=== PATIENT | male | born 1945 | race Caucasian/White ===

== ENCOUNTER → 2017-12-31 09:15 | Outpatient (CLI) | payer MEDICARE, SELFPAY ==
[2017-12-31 10:56] LABS: Add Manual Diff / Slide Review NO; Basophils Percent Auto 0.6 % (0-2); Eosinophils Percent Auto 0.8 % (2-4); Hemoglobin 14.1 g/dL (13.5-17.5); Lymphocytes Percent Auto 26.4 % (25-40); Mean Corpuscular HGB Conc 34.3 % (30-36); Mean Corpuscular Hemoglobin 34.1 PG (26-34); Mean Corpuscular Volume 99.4 fL (80-100); Monocytes Percent Auto 8.7 % (3-14); Neutrophils Absolute Auto 3200 /uL (3000-5900); Neutrophils Percent Auto 63.5 % (50-75); Platelet Count 258 X10^3/uL (150-400); Red Blood Cell Count 4.12 X10^6/uL (4.5-5.9); White Blood Cell Count 5.1 X10^3/uL (4.5-11.0)
== END ==
PROVIDERS: PCP Internal Medicine; Visit Provider Internal Medicine
DX: E29.1 Testicular hypofunction (principal); D64.9 Anemia, unspecified
CPT/HCPCS: 36415; 84153; 84403; 85025

== ENCOUNTER → 2018-08-06 13:49 | Outpatient (CLI) | payer MEDICARE, SELFPAY ==
[2018-08-06 14:25] LABS: Add Manual Diff / Slide Review NO; Basophils Absolute Auto 0 /uL (0-100); Basophils Percent Auto 0.4 % (0-2); Eosinophils Absolute Auto 0 /uL (0-450); Eosinophils Percent Auto 0.3 % (2-4); Hematocrit 41.6 % (41-53); Lymphocytes Absolute Auto 1400 /uL (1100-4500); Lymphocytes Percent Auto 21.6 % (25-40); Mean Corpuscular HGB Conc 33.7 % (30-36); Mean Corpuscular Hemoglobin 33.2 PG (26-34); Mean Corpuscular Volume 98.5 fL (80-100); Monocytes Absolute Auto 500 /uL (0-900); Monocytes Percent Auto 7.9 % (3-14); Neutrophils Absolute Auto 4600 /uL (1500-7000); Neutrophils Percent Auto 69.8 % (50-75); Platelet Count 240 X10^3/uL (150-400); Red Blood Cell Count 4.22 X10^6/uL (4.5-5.9); White Blood Cell Count 6.6 X10^3/uL (4.5-11.0)
== END ==
PROVIDERS: Visit Provider Internal Medicine
DX: D64.9 Anemia, unspecified (principal)
CPT/HCPCS: 36415; 85025

== ENCOUNTER 2018-09-29 15:23 | Emergency (ER) | payer MEDICARE, SELFPAY ==
[2018-09-29 15:31] VITALS: BP 208/94; PULSE 72; RESP 20; O2SAT 100
--- NOTE | 2018-09-29 15:31 | DI.RAD.S_ITS ---
PROCEDURE: XR CHEST 1V INDICATIONS: chest pain TECHNIQUE: One view of the chest was acquired. COMPARISON: None. FINDINGS: Surgical changes and devices: None. Lungs and pleura: Lungs are clear. No pleural effusions or pneumothorax. Mediastinum: Large hiatal hernia. Mediastinal contours otherwise appear normal. Heart size is normal. Bones and chest wall: No suspicious bony lesions. Overlying soft tissues appear unremarkable. IMPRESSION: 1. No acute process. 2. Hiatal hernia. Dictated by: Tyler Aguilar M.D. on 09/29/2018 at 16:04 Approved by: Tyler Aguilar M.D. on 09/29/2018 at 16:05
--- NOTE | 2018-09-29 15:32 | DI.CT.S_ITS ---
PROCEDURE: CT HEAD/BRAIN WO CON INDICATIONS: headache w/ left sided facial droop since 09/28 TECHNIQUE: Noncontrast 4.5 mm thick angled axial sections acquired from the foramen magnum to the vertex, with coronal and sagittal reformats. For radiation dose reduction, the following was used: automated exposure control, adjustment of mA and/or kV according to patient size. COMPARISON: None. FINDINGS: Image quality: Excellent. CSF spaces: Basal cisterns are patent. No extra-axial fluid collections. The ventricles are symmetric in size and shape. Brain: No intracranial bleeds or masses. There is cerebral volume loss for age, with resultant ventricular and sulcal prominence. There are periventricular and deep white matter chronic small vessel ischemic changes. There is intracranial internal carotid artery atherosclerosis. Skull and face: Calvarium and visualized facial bones appear intact, without suspicious lesions. Sinuses: Visualized sinuses and mastoids are clear. IMPRESSION: No acute intracranial abnormality. Dictated by: Tyler Aguilar M.D. on 09/29/2018 at 15:48 Approved by: Tyler Aguilar M.D. on 09/29/2018 at 15:49
[2018-09-29 16:00] VITALS: BP 156/66; PULSE 68; RESP 18; O2SAT 99
[2018-09-29 16:00] LABS: Add Manual Diff / Slide Review NO; Basophils Absolute Auto 100 /uL (0-100); Basophils Percent Auto 0.9 % (0-2); Eosinophils Absolute Auto 0 /uL (0-450); Eosinophils Percent Auto 0.2 % (2-4); Hematocrit 39.5 % (41-53); Hemoglobin 13.7 g/dL (13.5-17.5); Lymphocytes Absolute Auto 1300 /uL (1100-4500); Lymphocytes Percent Auto 16.5 % (25-40); Mean Corpuscular HGB Conc 34.8 % (30-36); Mean Corpuscular Hemoglobin 34.3 PG (26-34); Mean Corpuscular Volume 98.5 fL (80-100); Monocytes Absolute Auto 600 /uL (0-900); Monocytes Percent Auto 8.1 % (3-14); Neutrophils Absolute Auto 5700 /uL (1500-7000); Neutrophils Percent Auto 74.3 % (50-75); Platelet Count 213 X10^3/uL (150-400); Red Blood Cell Count 4.01 X10^6/uL (4.5-5.9); Red Cell Distribution Width 13.9 % (11.6-14.8); White Blood Cell Count 7.6 X10^3/uL (4.5-11.0)
[2018-09-29 16:12] LABS: Alanine Aminotransferase 24 IU/L (21-72); Albumin 4.2 g/dL (3.5-5.0); Albumin Globulin Ratio 1.3 (1.0-2.8); Alkaline Phosphatase 63 U/L (38-126); Aspartate Aminotransferase 28 IU/L (17-59); BUN Creatinine Ratio 22.2 (6-22); Bilirubin Total 0.5 mg/dL (0.2-1.3); Blood Urea Nitrogen 20 mg/dL (9-20); Calcium 8.8 mg/dL (8.4-10.2); Carbon Dioxide 26 mmol/L (22-32); Chloride 105 mmol/L (98-107); Creatine Kinase 72 U/L (55-170); Estimated Glomerular Filt Rate > 60.0 mL/min (>60); Globulin 3.2 g/dL (1.7-4.1); Glucose 87 mg/dL (80-110); HEMOLYSIS < 15 (0-50); Lipase 126 U/L (23-300); Potassium 3.9 mmol/L (3.4-5.1); Sodium 140 mmol/L (137-145); Total Protein 7.4 g/dL (6.3-8.2)
[2018-09-29 16:13] LABS: Prothrombin Time 11.5 SECONDS (10.1-12.7)
[2018-09-29 16:15] LABS: PTT Partial Thromboplastin Tim 29 SECONDS (26.4-36.2)
[2018-09-29 16:24] LABS: Troponin I < 0.012 ng/mL (0.01-0.034)
--- NOTE | 2018-09-29 17:01 | ED_ITS ---
HPI - Neuro Symptoms/Deficit General Chief Complaint: Neuro Symptoms/Deficit Stated Complaint: EAR ACHE LEFT SIDE HEADACHE LT EYE IS DRAINING Time Seen by Provider: 09/29/18 15:30 Source: patient Mode of arrival: ambulatory Limitations: no limitations History of Present Illness HPI Narrative: Patient complains of left ear pain for the last 4 days, with development of left facial droop yesterday. Patient denies any other complaints. No fatigue. No nausea or vomiting. No fevers. No focal deficits anywhere else. Patient states that his left eye has been tearing. No history of CVA. On Anticoagulants: No Related Data Home Medications Medication Instructions Recorded Confirmed amlodipine 5 mg PO DAILY 09/29/18 09/29/18 esomeprazole magnesium [Nexium] 20 mg PO DAILY 09/29/18 09/29/18 losartan 50 mg PO DAILY 09/29/18 09/29/18 testosterone 1 pump TOPICAL DIRECTED 09/29/18 09/29/18 Previous Rx's Medication Instructions Recorded acyclovir 800 mg PO TID #21 tab 09/29/18 prednisone 60 mg PO DAILY 5 Days #15 tab 09/29/18 Allergies Allergy/AdvReac Type Severity Reaction Status Date / Time No Known Drug Allergies Allergy Verified 09/29/18 15:12 Review of Systems Constitutional Denies chills, Denies fever(s), Denies lethargy and Reports weakness (See below) Eyes Denies change in vision, Denies eye discharge, Denies irritation and Denies loss of vision Comments: Tearing ENT Ears, Nose, Mouth, and Throat: Denies change in voice, Denies neck pain and Denies sore throat Cardiovascular Denies chest pain, Denies irregular heart rhythm, Denies lightheadedness, Denies palpitations, Denies dyspnea, Denies dyspnea on exertion and Denies orthopnea Respiratory Denies cough, Denies dyspnea, Denies dyspnea on exertion and Denies wheezing Gastrointestinal Gastrointestinal: Denies abdominal pain, Denies change in bowel habits, Denies diarrhea, Denies nausea and Denies vomiting Genitourinary Denies hematuria, Denies flank pain, Denies urinary incontinence and Denies urinary urgency Musculoskeletal Denies neck pain Integumentary/Breasts Denies pruritus, Denies erythema, Denies rash and Denies wounds Neurologic Denies confusion, Denies loss of vision and Reports weakness (See below) Comments: Facial droop Psychiatric Denies anxiety, Denies confusion, Denies depression, Denies homicidal ideation and Denies suicidal ideation Endocrine Denies palpitations Hematologic/Lymphatic Denies easy bruising Allergic/Immunologic Denies wheezing [facility] Medical History HTN (hypertension) (Acute) Surgical History No pertinent past surgical history (Acute) Social History Smoking Status: Never smoker Social History Smoking Status: Never smoker Exam Initial Vital Signs Initial Vital Signs: Vital Signs Pulse Rate 72 09/29/18 15:31 Respiratory Rate 20 09/29/18 15:31 Blood Pressure 208/94 H 09/29/18 15:31 Pulse Oximetry 100 09/29/18 15:31 Const General: cooperative and well developed Nutritional Appearance: well nourished Orientation: alert, awake, oriented x3 and not confused HENMT Head: normocephalic and atraumatic Ears: external ears normal and TM's normal bilaterally Nose: external nose normal and No nasal discharge Face and sinus: sinuses nontender, face symmetric, no sinus tenderness and No dry mucous membranes Mouth: oral mucosae normal and moist mucous membranes Teeth and gingiva: dentition normal Throat: tonsils normal and uvula midline Eyes General: appearance normal, both eyes and all related structures Eyelids: eyelids normal Conjunctivae: conjunctival abnormality left conjunctival injection (Mild tea ring) Sclera: sclerae normal Pupils: PERRL EOM: EOM intact bilaterally Neck Neck: normal visual inspection, trachea midline, No lymphadenopathy, No midline deformity and No JVD Lymphatic: No lymphedema Chest Chest: normal inspection of the chest Resp Effort & Inspection: normal respiratory effort, able to speak in complete sentences, no respiratory distress and no use of accessory muscles Auscultation: clear to auscultation bilaterally, no rales, no rhonchi and no wheezes Cardio Rate: regular rate Rhythm: regular rhythm Heart Sounds: no click, no gallops, no murmurs and no rubs Pulses: normal peripheral pulses GI Inspection: non-distended Palpation: soft, no hepatosplenomegaly, No guarding, No pulsatile mass and No tender Auscultation: normal bowel sounds Back/Spine/Pelvis Back: No CVA tenderness Cervical Spine: cervical ROM normal and No pain with cervical ROM Thoracic/Lumbar Spine: thoracic and lumbar spine normal to inspection Skin General: no rashes or lesions noted, No jaundice and No petechiae Neuro General: alert, awake, oriented x3 and gait normal Cranial Nerves: other (Global left facial droop, including forehead) Cognition: normal cognition Speech: speech normal Gait: normal gait Motor: muscle tone normal throughout and strength 5/5 throughout Sensory Exam: no sensory deficits noted Extrem General: full ROM, no clubbing, cyanosis or edema, no pedal edema and no calf tenderness Psych Appearance: well kempt Mental Status: mental status grossly normal Attitude: cooperative Thought Content: normal and suicidality Judgment: judgment good Course Course Narrative: Workup was initiated on the patient's arrival, including labs and head CT, and found to be negative. 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 I started the patient on acyclovir and prednisone. I have discussed with the patient that the symptoms do not represent a stroke, and will be self-limited and a matter of weeks. We have discussed home management of symptoms, as well as the indications for follow-up and the usual indications for return. Orders Ordered: Discontinued Medications Acyclovir (Zovirax) 800 mg PO NOW ONE Stop: 09/29/18 16:59 Last Admin: 09/29/18 17:26 Dose: 800 mg Labetalol HCl (Normodyne) 20 mg IV NOW ONE Stop: 09/29/18 15:56 Last Admin: 09/29/18 16:00 Dose: Not Given Prednisone (Deltasone) 60 mg PO NOW ONE Stop: 09/29/18 16:59 Last Admin: 09/29/18 17:26 Dose: 60 mg Vital Signs - 8 hr 09/29/18 15:31 09/29/18 16:00 Pulse Rate 72 68 Respiratory Rate 20 18 Blood Pressure 208/94 H Blood Pressure [Right Arm] 156/66 H Pulse Oximetry 100 99 MDM - Neuro Symptoms/Deficit Medical Records Attestation: I reviewed the patient's medical records. Lab Data Attestation: I reviewed the patient's lab results. Result diagrams: 09/29/18 15:51 09/29/18 15:51 Lab Results 09/29/18 09/29/1809/29/19 Range/Units 15:51 15:51 15:51 WBC 7.6 (4.5-11.0) X10^3/uL RBC 4.01 L (4.5-5.9) X10^6/uL Hgb 13.7 (13.5-17.5) g/dL Hct 39.5 L (41-53) % MCV 98.5 (80-100) fL MCH 34.3 H (26-34) PG MCHC 34.8 (30-36) % RDW 13.9 (11.6-14.8) % Plt Count 213 (150-400) X10^3/uL Neut % (Auto) 74.3 (50-75) % Lymph % (Auto) 16.5 L (25-40) % [place] % (Auto) 8.1 (3-14) % Eos % (Auto) 0.2 L (2-4) % Baso % (Auto) 0.9 (0-2) % Neut # (Auto) 5700 (1778-6063) /uL Lymph # (Auto) 1300 (3967-1154) /uL [place] # (Auto) 600 (0-900) /uL Eos # (Auto) 0 (0-450) /uL Baso # (Auto) 100 (0-100) /uL PT 11.5 (10.1-12.7) SECONDS INR 1.0 (0.9-1.3) APTT 29 (26.4-36.2) SECONDS Sodium 140 (137-145) mmol/L Potassium 3.9 (3.4-5.1) mmol/L Chloride 105 (98-107) mmol/L Carbon Dioxide 26 (22-32) mmol/L BUN 20 (9-20) mg/dL Creatinine 0.90 (0.66-1.25) mg/dL Estimated GFR > 60.0 (>60) mL/min BUN/Creatinine Ratio 22.2 H (6-22) Glucose 87 (80-110) mg/dL Calcium 8.8 (8.4-10.2) mg/dL Total Bilirubin 0.5 (0.2-1.3) mg/dL AST 28 (17-59) IU/L ALT 24 (21-72) IU/L Alkaline Phosphatase 63 (38-126) U/L Total Creatine Kinase 72 (55-170) U/L CK-MB (CK-2) TNP CK-MB (CK-2) Rel Index TNP Troponin I < 0.012 (0.01-0.034) ng/mL Total Protein 7.4 (6.3-8.2) g/dL Albumin 4.2 (3.5-5.0) g/dL Globulin 3.2 (1.7-4.1) g/dL Albumin/Globulin Ratio 1.3 (1.0-2.8) Lipase 126 (23-300) U/L Imaging Data CT scan - head: Radiologist's impression: PROCEDURE: CT HEAD/BRAIN WO CON INDICATIONS: headache w/ left sided facial droop since 09/28 TECHNIQUE: Noncontrast 4.5 mm thick angled axial sections acquired from the foramen magnum to the vertex, with coronal and sagittal reformats. For radiation dose reduction, the following was used: automated exposure control, adjustment of mA and/or kV according to patient size. COMPARISON: None. FINDINGS: Image quality: Excellent. CSF spaces: Basal cisterns are patent. No extra-axial fluid collections. The ventricles are symmetric in size and shape. Brain: No intracranial bleeds or masses. There is cerebral volume loss for age, with resultant ventricular and sulcal prominence. There are periventricular and deep white matter chronic small vessel ischemic changes. There is intracranial internal carotid artery atherosclerosis. Skull and face: Calvarium and visualized facial bones appear intact, without suspicious lesions. Sinuses: Visualized sinuses and mastoids are clear. IMPRESSION: No acute intracranial abnormality. Dictated by: Tyler Aguilar M.D. on 09/29/2018 at 15:48 Approved by: Tyler Aguilar M.D. on 09/29/2018 at 15:49 Chest x-ray: Radiologist's impression: [address] [address] XRay Report Signed Patient: Sundeep Rashid [facility]#: [id number] : 5Acct:[id number] Age/Sex: 73 / MDate of Service: 09/29/18 Loc: ED Accession Number: [id number] Procedure: XR chest 1V Ordering Provider: Lexi Evans MD PROCEDURE: XR CHEST 1V INDICATIONS: chest pain TECHNIQUE: One view of the chest was acquired. COMPARISON: None. FINDINGS: Surgical changes and devices: None. Lungs and pleura: Lungs are clear. No pleural effusions or pneumothorax. Mediastinum: Large hiatal hernia. Mediastinal contours otherwise appear normal. Heart size is normal. Bones and chest wall: No suspicious bony lesions. Overlying soft tissues appear unremarkable. IMPRESSION: 1. No acute process. 2. Hiatal hernia. Dictated by: Tyler Aguilar M.D. on 09/29/2018 at 16:04 Approved by: Tyler Aguilar M.D. on 09/29/2018 at 16:05 Discharge Plan Departure Patient Disposition: Home Clinical Impression: Facial paralysis/Spencer palsy Discharge Date/Time: 09/29/18 17:36 Interventions: ED Discharge Assessment Last Done: 09/29/18 17:35 Instructions: DI for Murry's Palsy Activity Restrictions/Additional Instructions: Your labs look good. Your CT scan of the head is also unremarkable. Her symptoms are most consistent with a facial nerve palsy, which is usually caused by a viral infection in the facial nerve. This is most likely related also to the ear pain that you are having. All of the symptoms will resolve on their o wn, but steroids and antiviral medication have been shown to be helpful for this condition, and as such, you have been started on these today. The facial weakness can last for weeks to a couple of months, but will ultimately resolve on its own. To protect your eye at night while your lids are not completely closing, you should use the Lacri-Lube, as prescribed. Prescriptions: New prednisone 20 mg tablet 60 mg PO DAILY 5 Days Qty: 15 RF: 0 acyclovir 800 mg tablet 800 mg PO TID Qty: 21 RF: 0 No Action losartan 50 mg tablet 50 mg PO DAILY RF: 0 amlodipine 5 mg tablet 5 mg PO DAILY RF: 0 testosterone 20.25 mg/1.25 gram (1.62 %) gel in metered-dose pump 1 pump topical DIRECTED RF: 0 esomeprazole magnesium [Nexium] 20 mg Capsule,Delayed Release(Dr/Ec) 20 mg PO DAILY RF: 0 Referrals: [facility] Neurology [Provider Group] (You may follow up as needed.)
[2018-09-29 17:15] VITALS: BP 154/81; PULSE 67; RESP 12; O2SAT 99
[2018-09-29] MEDS: ACYCLOVIR 200 MG CAPSULE 800 MG PO (17:26)
[2018-09-29] MEDS: predniSONE 20 MG TABLET 60 MG PO (17:26)
--- NOTE | 2018-09-30 14:56 | PC.NURSE ---
Received phone call from pt who [facility]. I called neurology and they confirmed that also stating that it would be March or April before he would be seen. Called PCP office (Dr. Cruz). Spoke w/ dental office receptionist who made appointment for patient tomorrow @ 2:15. Spoke w/ patient who verbalized understanding and agreement w/ plan. Encouraged pt to return if any worsening or concerns.
== END 2018-09-29 17:36 | disposition home or self-care (01) ==
PROVIDERS: Emergency Provider Emergency Medicine
DX: G51.0 Bell's palsy (principal); R07.9 Chest pain, unspecified
CPT/HCPCS: 36591; 70450; 71045; 80053; 82550; 83690; 84484; 85025; 85610; 85730; 93005; 99283; 99285

== ENCOUNTER → 2020-10-04 12:38 | Outpatient (CLI) | payer MEDICARE, SELFPAY ==
--- NOTE | 2020-10-04 | PATH_ITS ---
Note [facility] Accession Number: [id number] TESTS RESULT FLAG UNITS REF RANGE LAB Clinician Provided Cytology Information No. of containers..01 Other (Miscellaneous) No. of containers..00 Previously Prepared Cytology Slide 01 L INFERIOR THYROID DIAGNOSIS: 01 L INFERIOR THYROID NEGATIVE FOR MALIGNANT CELLS. BETHESDA CATEGORY II. SPECIMEN CONSISTS OF BENIGN FOLLICULAR CELLS AND HEMOSIDERIN-LADEN MACROPHAGES, CONSISTENT WITH A BENIGN FOLLICULAR NODULE. Pathologist ICD10: 01 E04.1 Lo Parada MD, Pathologist NPI- [id number] Jayden Clifton, Music Industry Internship ([facility]) 01 30 CC, PINK, CLEAR Also received 5 quick-stained, 5 alcohol fixed slides, and 1 RNA vial. /[facility] 10/05/[address] [place] [address] FLAG LEGEND: L-Low Normal,H-High Normal,LL-Alert Low,HH-Alert High <-Panic Low,>-Panic High,A-Abnormal,AA-Critical Abnormal Performed at: 01 =Z [facility] [address], [place] [address] Omid Casillas MD, Performed at: 01 [facility] [address], [place], [place] [id number] MD Omid Casillas MD Phone: [phone]
--- NOTE | 2020-10-04 | PATH_ITS ---
Note [facility] Accession Number: [id number] TESTS RESULT FLAG UNITS REF RANGE LAB Clinician Provided Cytology Information No. of containers..01 Other (Miscellaneous) No. of containers..00 Previously Prepared Cytology Slide R THYROID MEDIAL DIAGNOSIS: 01 R THYROID MEDIAL NEGATIVE FOR MALIGNANT CELLS. BETHESDA CATEGORY II. SPECIMEN CONSISTS OF BENIGN FOLLICULAR CELLS AND HEMOSIDERIN-LADEN MACROPHAGES, CONSISTENT WITH A BENIGN FOLLICULAR NODULE. Pathologist ICD10: E04.1 Lo Parada MD, Pathologist NPI- [id number] Jayden Clifton, Human Resource Analyst ([facility]) 01 30 CC, PINK, CLEAR Also received 5 quick-stained, 5 alcohol fixed slides, and 1 RNA vial. /[facility] 10/05/2020 [address] [address] FLAG LEGEND: L-Low Normal,H-High Normal,LL-Alert Low,HH-Alert High <-Panic Low,>-Panic High,A-Abnormal,AA-Critical Abnormal Performed at: 01 =Z [facility] [address], [place] [address] Omid Casillas MD, Performed at: 01 [facility] [address], [place], [place] [id number] MD Omid Casillas MD Phone: [phone]
--- NOTE | 2020-10-04 | PATH_ITS ---
Note [facility] Accession Number: [id number] TESTS RESULT FLAG UNITS REF RANGE LAB Clinician Provided Cytology Information No. of containers..01 Other (Miscellaneous) No. of containers..00 Previously Prepared Cytology Slide 01 R THYROID LATERAL NODULE DIAGNOSIS: 01 R THYROID LATERAL NODULE NEGATIVE FOR MALIGNANT CELLS. BETHESDA CATEGORY II. SPECIMEN CONSISTS OF BENIGN FOLLICULAR CELLS, HEMOSIDERIN-LADEN MACROPHAGES, AND COLLOID, CONSISTENT WITH A BENIGN FOLLICULAR NODULE. Pathologist ICD10: 01 E04.1 Lo Parada MD, Pathologist NPI- [id number] Carlos Mcbride, Stamp Press Operator ([facility]) 01 30 CC, PINK, CLEAR Also received 1 RNA vial, 5 quick-stained, and 5 alcohol fixed slides. /[facility] 10/05/[address] [place] [address] FLAG LEGEND: L-Low Normal,H-High Normal,LL-Alert Low,HH-Alert High <-Panic Low,>-Panic High,A-Abnormal,AA-Critical Abnormal Performed at: 01 =Z [facility] [address], [place] [address] Omid Casillas MD, Performed at: 01 [facility] [address], [place], [place] [id number] MD Omid Casillas MD Phone: [phone]
--- NOTE | 2020-10-04 | DI.US.S_ITS ---
PROCEDURE: US FINE NEEDLE ASPIRATION INDICATIONS: BILATERAL NODULES X 3 TECHNIQUE: The indications, alternatives, benefits, risks, and complications of the procedure were explained to the patient. Written informed consent was obtained and placed in the chart. The thyroid region was examined sonographically and a site was chosen for ultrasound guided percutaneous sampling. The skin was prepared and draped in the usual fashion, and anesthetized with 1% lidocaine infiltrated from the skin down to the thyroid gland. Multiple passes were then performed, with contents emptied into an appropriate pathology specimen container. A bandage was applied to the area of access at completion of the study. COMPARISON: No images available for review FINDINGS: Location(s) of lesion(s) sampled: 1. Inferior left thyroid lobe nodule. 2. Right lateral thyroid lobe nodule. 3. Right medial thyroid lobe nodule. Please see FNA worksheet for location. Sanders: 25 gauge hypodermic needles. Number of passes: 6 passes were made for each nodule sampled. Medications: 1% lidocaine for local anaesthesia. Complications: None. IMPRESSION: Successful ultrasound-guided thyroid nodule fine needle aspiration, with cytology results pending. Please see chart below for management recommendations based on cytology results. Bowdle System ReportingRecommendationsNon-diagnostic* Repeat US-guided FNA, with on-site cytology evaluation if possible. * Repeated non-diagnostic nodules without high suspicion US features: close observation vs surgical consult. * Consider surgery if nodule has high suspicion US features, grows >20% in 2 dimensions on followup, or patient has clinical risk factors for malignancy. Benign* If nodule has high suspicion US features: repeat US and FNA within 12 months. * If nodule has low to intermediate suspicion US features: repeat US at 12-24 months. If nodule grows (20% increase in at least 2 dimensions, with minimal increase of 2 mm or >50% change in volume), or development of new suspicious US features, then repeat FNA or continue followup. * If nodule has very low suspicion US features: followup US at >24 months. Atypia of undetermined significance, follicular lesion of undetermined significanceRepeat FNA, molecular testing, followup US, or surgical consult.Follicular neoplasm, suspicious for follicular neoplasmSurgical consult; also consider molecular testing. Suspicious for malignancySurgical consult.MalignantSurgical consult. Dictated by: Ridge Lenz M.D. on 10/04/2020 at 17:37 Approved by: Ridge Lenz M.D. on 10/04/2020 at 17:40
== END ==
PROVIDERS: PCP Student in an Organized Health Care Education/Training Program; Referring Provider Student in an Organized Health Care Education/Training Program; Visit Provider Student in an Organized Health Care Education/Training Program
DX: E04.2 Nontoxic multinodular goiter (principal)
CPT/HCPCS: 10005; 10006

== ENCOUNTER → 2022-11-06 11:21 | Outpatient (CLI) | payer MEDICARE, SELFPAY ==
[2022-11-06 14:45] LABS: Add Manual Diff / Slide Review NO; Basophils Absolute Auto 0 /uL (0-100); Basophils Percent Auto 0.5 % (0-2); Eosinophils Absolute Auto 100 /uL (0-450); Eosinophils Percent Auto 0.8 % (2-4); Hematocrit 41.5 % (41-53); Hemoglobin 14.5 g/dL (13.5-17.5); Lymphocytes Absolute Auto 1300 /uL (1100-4500); Lymphocytes Percent Auto 20.3 % (25-40); Mean Corpuscular HGB Conc 34.9 % (30-36); Mean Corpuscular Hemoglobin 36.1 PG (26-34); Mean Corpuscular Volume 103.4 fL (80-100); Monocytes Absolute Auto 600 /uL (0-900); Monocytes Percent Auto 9.1 % (3-14); Neutrophils Absolute Auto 4500 /uL (1500-7000); Neutrophils Percent Auto 69.3 % (50-75); Platelet Count 219 X10^3/uL (150-400); Red Blood Cell Count 4.01 X10^6/uL (4.5-5.9); White Blood Cell Count 6.5 X10^3/uL (4.5-11.0)
[2022-11-06 15:03] LABS: Erythrocyte Sedimentation Rate 7 MM/HR (0-15)
== END ==
PROVIDERS: PCP Student in an Organized Health Care Education/Training Program; Referring Provider Ophthalmology; Visit Provider Ophthalmology
DX: R51.9 Headache, unspecified (principal)
CPT/HCPCS: 36415; 85025; 85651; 86140

== ENCOUNTER → 2022-11-20 08:53 | Outpatient (CLI) | payer MEDICARE, SELFPAY ==
[2022-11-20 10:29] LABS: Prostate Specific Antigen 1.49 ng/mL (0.10-4.00)
== END ==
PROVIDERS: PCP Student in an Organized Health Care Education/Training Program; Visit Provider Specialist
DX: Z12.5 Encounter for screening for malignant neoplasm of prostate (principal); R33.9 Retention of urine, unspecified; N40.1 Benign prostatic hyperplasia with lower urinary tract symptoms; N13.8 Other obstructive and reflux uropathy; Z87.438 Personal history of other diseases of male genital organs
CPT/HCPCS: 51798; 81002; 84153; 87086; 99215; G0103

== ENCOUNTER → 2022-12-09 10:48 | Outpatient (CLI) | payer MEDICARE, SELFPAY ==
--- NOTE | 2022-12-09 | DI.CT.S_ITS ---
PROCEDURE: CT SINUS SCREEN WO CON INDICATIONS: HEADACHE TECHNIQUE: Noncontrast 3.0 mm axial images acquired from the frontal sinuses to the mid-sella, with coronal and sagittal reformats. For radiation dose reduction, the following was used: automated exposure control, adjustment of mA and/or kV according to patient size. COMPARISON: None. FINDINGS: Image quality: Excellent. Maxillary Sinuses: No bony remodeling or destruction. Mild mucosal thickening. Moderate size mucous retention cysts inferiorly.. Ethmoid Air Cells: No bony remodeling or destruction. Mild diffuse mucosal thickening. Sphenoid Sinuses: No bony remodeling or destruction. Mild mucosal thickening with small fluid in the pneumatized left lateral aspect of the sphenoid sinus.. Frontal Sinuses: No bony remodeling or destruction. Mild mucosal thickening inferiorly. Ostiomeatal Complexes: Left ostiomeatal complex is opacified. Right ostiomeatal complex is clear.. Left-sided and partial right-sided Noemy cells. Miscellaneous: Visualized intra-orbital contents are normal. Right-sided nova bullosa . No paradoxical turbinate curvature. Minimal leftward nasal septal deviation. Periapical lucency surrounding the right maxillary molars. Bilateral lens replacements. IMPRESSION: 1. Mild diffuse paranasal sinus mucosal disease. Mucous retention cysts within the bilateral maxillary sinuses. 2. Periapical lucency surrounding the right maxillary molars, recommend correlation with dental exam. Dictated by: Norbert Stevenson M.D. on 12/09/2022 at 12:14 Approved by: Norbert Stevenson M.D. on 12/09/2022 at 12:20
== END ==
PROVIDERS: PCP Family Medicine; Referring Provider Family Medicine; Visit Provider Family Medicine
DX: J32.8 Other chronic sinusitis (principal); J34.1 Cyst and mucocele of nose and nasal sinus; R51.9 Headache, unspecified
CPT/HCPCS: 70486

== ENCOUNTER 2024-08-14 08:47 | Emergency (ER) | payer MEDICARE, SELFPAY ==
[2024-08-14] VITALS (14 sets, daily range): BP systolic 108–127; BP diastolic 55–73; PULSE 62–83; RESP 18; TEMP 36.8; O2SAT 95–99; BMI 27.3
--- NOTE | 2024-08-14 09:16 | ED_ITS ---
HPI - General Adult General Chief complaint: Nausea/Vomiting/Diarrhea Stated complaint: diarrhea, head/ear congestion t-3 Time Seen by Provider: 08/14/24 08:52 Source: patient Mode of arrival: Ambulatory History of Present Illness HPI narrative: 78-year-old male had recent travel to [place], returning with occasional cough, predominance of frequent episodes watery stool for the last few days. No black or red stools. No mucoid stools. No nausea or vomiting. traveled with him, is asymptomatic with regard to respiratory and gastrointestinal symptoms. Patient not taking any oral antibiotics now or recent. No history of known inflammatory bowel disease. Denies abdominal discomfort. Denies chest pain and shortness of breath. No fevers or chills. Related Data Home Medications Medication Instructions Recorded Confirmed amlodipine 5 mg tablet 5 mg PO DAILY 09/29/18 08/11/24 losartan 50 mg tablet 50 mg PO DAILY 09/29/18 08/11/24 testosterone 1 pump topical DIRECTED 09/29/18 08/11/24 Previous Rx's Medication Instructions Recorded alfuzosin 10 mg tablet,extended 10 mg PO DAILY #90 tabs 07/21/24 release 24 hr Allergies Allergy/AdvReac Type Severity Reaction Status Date / Time No Known Drug Allergies Allergy Verified 08/11/24 09:42 Patient History Medical History History of prostatitis BPH w urinary obs/LUTS HTN (hypertension) Surgical History No pertinent past surgical history Social History Smoking Status: Former smoker Smoking Status: Former smoker Exam Narrative Exam Narrative: GENERAL: Well-developed patient, in mild distress. HEAD: Atraumatic. Normocephalic. EYES: Pupils equal round and reactive. Extraocular motions intact. No scleral icterus. No injection or drainage. ENT: Nose without bleeding, purulent drainage. Throat without erythema, tonsillar hypertrophy or exudate. Airway patent. NECK: Trachea midline. Non tender CARDIOVASCULAR: Regular rate and rhythm without murmurs, gallops, or rubs. RESPIRATORY: Clear to auscultation. Breath sounds equal bilaterally. No wheezes, rales, or rhonchi. GASTROINTESTINAL: Abdomen soft, non-tender, nondistended. EXTREMITIES: No edema or joint tenderness. BACK: Nontender without deformity or crepitance. No flank tenderness. NEURO: AOx3. Motor functions grossly nonfocal SKIN: No rash or erythema of visible areas Initial Vital Signs Initial Vital Signs: Vital Signs Blood Pressure 125/58 L 08/14/24 08:52 Course Orders Ordered: ED Orders 08/14/24 11:30 GI Panel (Film Array) Stat 08/14/24 12:30 Ictotest Urine Stat Urine Microscopic Stat Discontinued Medications Azithromycin (Azithromycin 250 Mg Tablet) 500 mg PO NOW ONE Stop: 08/14/24 13:22 Last Admin: 08/14/24 13:33 Dose: Not Given Documented By: Azithromycin (Azithromycin 250 Mg Tablet) 1,000 mg PO NOW ONE Stop: 08/14/24 13:31 Last Admin: 08/14/24 13:42 Dose: 1,000 mg Documented By: RB Sodium Chloride (Normal Saline 0.9%) 1,000 mls @ 1,000 mls/hr IV BOLUS ONE Stop: 08/14/24 09:52 Last Infusion: 08/14/24 10:47 Dose: Infused Documented By: Admin: 08/14/24 09:26 Dose: 1,000 mls/hr Documented By: RB Loperamide HCl (Loperamide 2 Mg Capsule) 4 mg PO NOW ONE Stop: 08/14/24 10:42 Last Admin: 08/14/24 10:46 Dose: 4 mg Documented By: RB Potassium Chloride (Potassium Chloride 20 Meq/15 Ml Udc) 20 meq PO NOW ONE Stop: 08/14/24 10:37 Last Admin: 08/14/24 10:46 Dose: 20 meq Documented By: RB Vital Signs Vital signs: Vital Signs - 8 hr 08/14/24 13:39 08/14/24 13:40 08/14/24 13:40 Pulse Rate 69 68 Blood Pressure 121/62 Pulse Oximetry 97 97 Medical Decision Making Lab Data Lab results reviewed: Yes I reviewed the patient's lab results. Lab results narrative: White blood cell count 7800, hemoglobin 14.3, platelets 220,000. Glucose 119. BUN 20 with creatinine 1.38 normal renal function. Serum CO2 21 slight decreased. Sodium 130 low noted, potassium 3.4 low in normal before IV fluids given. Liver functions and lipase normal. COVID flu RSV swab negative. 08/14/24 09:20 08/14/24 09:20 Labs: Lab Results 08/14/24 08/14/24 08/14/24 Range/Units 09:00 09:20 11:30 WBC 7.8 (4.5-11.0) X10^3/uL RBC 3.81 L (4.5-5.9) X10^6/uL Hgb 14.3 (13.5-17.5) g/dL Hct 40.4 L (41-53) % MCV 106.1 H (80-100) fL MCH 37.5 H (26-34) PG MCHC 35.4 (30-36) % RDW 12.5 (11.6-14.8) % Plt Count 227 (150-400) X10^3/uL Neut % (Auto) 76.1 H (50-75) % Lymph % (Auto) 6.3 L (25-40) % [place] % (Auto) 17.1 H (3-14) % Eos % (Auto) 0.1 L (2-4) % Baso % (Auto) 0.4 (0-2) % Neut # (Auto) 6000 (8692-3295) /uL Lymph # (Auto) 500 L (5696-3457) /uL [place] # (Auto) 1300 H (0-900) /uL Eos # (Auto) 0 (0-450) /uL Baso # (Auto) 0 (0-100) /uL Sodium 130 L (137-145) mmol/L Potassium 3.4 (3.4-5.1) mmol/L Chloride 99 (98-107) mmol/L Carbon Dioxide 21 L (22-32) mmol/L BUN 20 (9-20) mg/dL Creatinine 1.38 H (0.66-1.25) mg/dL Estimated GFR 52 L (>60) mL/min BUN/Creatinine Ratio 14.5 (6-22) Glucose 119 H (70-99) mg/dL Calcium 8.3 L (8.4-10.2) mg/dL Total Bilirubin 0.6 (0.2-1.3) mg/dL AST 48 (17-59) IU/L ALT 45 (<50) IU/L Alkaline Phosphatase 63 (38-126) U/L Total Protein 6.7 (6.3-8.2) g/dL Albumin 3.5 (3.5-5.0) g/dL Globulin 3.2 (1.7-4.1) g/dL Albumin/Globulin Ratio 1.1 (1.0-2.8) Lipase 72 (23-300) U/L Ur Bilirubin Confirm (Negative) Urine RBC (0-5/HPF) Urine WBC (0-5/HPF) Ur Squamous Epith Cells (0-5/HPF) Urine Bacteria (None) Hyaline Casts (None) Urine Mucus (Negative) Ur Culture Indicated? Vol Urine Centrifuged Stl C. cayetanensis PCR Not detected (Not Detect) Stool Rotavirus (PCR) Not detected (Not Detect) Stool Adenovirus (PCR) Not detected (Not Detect) Stool Astrovirus (PCR) Not detected (Not Detect) Stool Cryptosporidium PCR Not detected (Not Detect) Stl E.coli Shiga Tox PCR Not detected (Not Detect) St Sh/Enteroin Ecoli PCR Not detected (Not Detect) Stl Enterotoxigenic E PCR Not detected (Not Detect) Stool EPEC (PCR) Not detected (Not Detect) Stl E. histolytica PCR Not detected (Not Detect) Stool Giardia Lamblia PCR Not detected (Not Detect) Stool Sapovirus (PCR) Not detected (Not Detect) Stl P. shigelloides PCR Not detected (Not Detect) St Y.enterocolitica PCR Not detected (Not Detect) Stool Vibrio (PCR) Not detected (Not Detect) Stl Vibrio cholerae PCR Not detected (Not Detect) Stl Enteroaggr Ecoli PCR Not detected (Not Detect) Stl Norovirus GI/GII PCR Not detected (Not Detect) Campylobacter (PCR) Detected (Not Detect) C. difficile Tox (PCR) Not detected (Not Detect) SARS-CoV-2 (PCR) Negative (Negative) Influenza A (RT-PCR) Flu a negative (NEGATIVE) Influenza B (RT-PCR) Flu b negative (NEGATIVE) RSV (PCR) Negative (Negative) Salmonella (PCR) Not detected (Not Detect) 08/14/24 Range/Units 12:30 WBC (4.5-11.0) X10^3/uL RBC (4.5-5.9) X10^6/uL Hgb (13.5-17.5) g/dL Hct (41-53) % MCV (80-100) fL MCH (26-34) PG MCHC (30-36) % RDW (11.6-14.8) % Plt Count (150-400) X10^3/uL Neut % (Auto) (50-75) % Lymph % (Auto) (25-40) % [place] % (Auto) (3-14) % Eos % (Auto) (2-4) % Baso % (Auto) (0-2) % Neut # (Auto) (7682-4870) /uL Lymph # (Auto) (3960-5366) /uL [place] # (Auto) (0-900) /uL Eos # (Auto) (0-450) /uL Baso # (Auto) (0-100) /uL Sodium (137-145) mmol/L Potassium (3.4-5.1) mmol/L Chloride (98-107) mmol/L Carbon Dioxide (22-32) mmol/L BUN (9-20) mg/dL Creatinine (0.66-1.25) mg/dL Estimated GFR (>60) mL/min BUN/Creatinine Ratio (6-22) Glucose (70-99) mg/dL Calcium (8.4-10.2) mg/dL Total Bilirubin (0.2-1.3) mg/dL AST (17-59) IU/L ALT (<50) IU/L Alkaline Phosphatase (38-126) U/L Total Protein (6.3-8.2) g/dL Albumin (3.5-5.0) g/dL Globulin (1.7-4.1) g/dL Albumin/Globulin Ratio (1.0-2.8) Lipase (23-300) U/L Ur Bilirubin Confirm Positive H (Negative) Urine RBC None seen (0-5/HPF) Urine WBC 0-1/hpf (0-5/HPF) Ur Squamous Epith Cells 0-1 /hpf (0-5/HPF) Urine Bacteria None seen (None) Hyaline Casts 1-5/lpf (None) Urine Mucus 2+ H (Negative) Ur Culture Indicated? Cult not indicated Vol Urine Centrifuged 10ml (spun) Stl C. cayetanensis PCR (Not Detect) Stool Rotavirus (PCR) (Not Detect) Stool Adenovirus (PCR) (Not Detect) Stool Astrovirus (PCR) (Not Detect) Stool Cryptosporidium PCR (Not Detect) Stl E.coli Shiga Tox PCR (Not Detect) St Sh/Enteroin Ecoli PCR (Not Detect) Stl Enterotoxigenic E PCR (Not Detect) Stool EPEC (PCR) (Not Detect) Stl E. histolytica PCR (Not Detect) Stool Giardia Lamblia PCR (Not Detect) Stool Sapovirus (PCR) (Not Detect) Stl P. shigelloides PCR (Not Detect) St Y.enterocolitica PCR (Not Detect) Stool Vibrio (PCR) (Not Detect) Stl Vibrio cholerae PCR (Not Detect) Stl Enteroaggr Ecoli PCR (Not Detect) Stl Norovirus GI/GII PCR (Not Detect) Campylobacter (PCR) (Not Detect) C. difficile Tox (PCR) (Not Detect) SARS-CoV-2 (PCR) (Negative) Influenza A (RT-PCR) (NEGATIVE) Influenza B (RT-PCR) (NEGATIVE) RSV (PCR) (Negative) Salmonella (PCR) (Not Detect) Urine Dip Bedside Urine Glucose Negative Bedside Urine Bilirubin + 1 Bedside Urine Ketone ++ 40 Urine Specific [place] 1.015 Bedside Urine Occult Blood - Negative Bedside Urine pH 6.0 Bedside Urine Protein + 30 Bedside Urine Urobilinogen - Negative Bedside Urine Nitrite - Negative Bedside Urine Leukocytes - Negative Esterase Point of care testing: Urine Dip Bedside Urine Glucose Negative Bedside Urine Bilirubin + 1 Bedside Urine Ketone ++ 40 Urine Specific [place] 1.015 Bedside Urine Occult Blood - Negative Bedside Urine pH 6.0 Bedside Urine Protein + 30 Bedside Urine Urobilinogen - Negative Bedside Urine Nitrite - Negative Bedside Urine Leukocytes - Negative Esterase MDM Narrative Medical decision making narrative: 78-year-old male with watery diarrhea for the last week, occasional cough, no black or red stools, afebrile, sirs screen negative, abdominal exam benign without tenderness in distention, bowel tones not particularly hyperactive or hypoactive. No nausea or vomiting. No recent exposure to antibiotics. Recent travel to [place]. travel with him is asymptomatic. Occasional cough URI symptoms. DDx consider viral syndrome, viral gastroenteritis, GI component of predominant respiratory illness, COVID, influenza, other. Stool enteric pathogens ordered if he produces sample for lab testing. Electrolytes panel requested. IV fluids bolus. Labs pending. No significant tenderness, we will hold on advanced abdominal imaging at this time. Sodium 130 decreased, potassium 3.4 upper limit normal, before IV fluids given, we will give oral potassium supplement. Current saline bag infused. Still had not produced a stool but he feels like he might have to go now. We will give oral dose of loperamide. Await stool specimen if he is willing to wait to produce a specimen and wait for results. Covid influenza RSV negative. Stool positive for Campylobacter, otherwise negative. No fever or bloody stools. But impactful frequency and multiple days stooling, offered antibiotic Rx, he agrees. Given single dose PO Azithromycin 1000mg in ED. Also gave oral dose loperamide. DC'd home with . Return precautions discussed. Discharge Plan Departure Patient Disposition: Home Clinical Impression: Campylobacter diarrhea Activity Restrictions/Additional Instructions: Ongoing diarrhea quite impactful for the last number of days with frequent episodes, nonbloody, no fever, no significant tenderness on exam. Screening labs unremarkable serum studies. Potassium was low range of normal, IV fluids were given, single dose oral potassium was given. Eventually a specimen of stool was sent to the lab, which was positive for Campylobacter bacteria. This sometimes can be treated without antibiotics but since you have had this so many days we opted to start with antibiotic treatment. Oral azithromycin 1000 mg single dose was given. Hopefully this will eradicate the infection. Recheck symptoms with your regular doctor on Friday if there is any persistence of symptoms. Return if there is any fevers chills increasing abdominal pain bloody stools or any concerns prior. Consider taking loperamide dose for the next day or so if needed to help control residual diarrheal symptoms. Single dose of loperamide given in the emergency department. Prescriptions: No Action losartan 50 mg tablet 50 mg PO DAILY amlodipine 5 mg tablet 5 mg PO DAILY testosterone 20.25 mg/1.25 gram (1.62 %) gel in metered-dose pump 1 pump topical DIRECTED alfuzosin 10 mg tablet extended release 24 hr 10 mg PO DAILY Qty: 90 3RF Rx Instructions: administer after the same meal each day Referrals: Katharina Person MD [Primary Care Provider] - Stand Alone Forms: Patient Portal/API/Survey
[2024-08-14] MEDS: SODIUM CHLORIDE 0.9% 1,000 ML 1000 ML IV (09:26)
[2024-08-14 09:30] LABS: Add Manual Diff / Slide Review NO; Basophils Absolute Auto 0 /uL (0-100); Basophils Percent Auto 0.4 % (0-2); Eosinophils Absolute Auto 0 /uL (0-450); Eosinophils Percent Auto 0.1 % (2-4); Hematocrit 40.4 % (41-53); Hemoglobin 14.3 g/dL (13.5-17.5); Lymphocytes Absolute Auto 500 /uL (1100-4500); Lymphocytes Percent Auto 6.3 % (25-40); Mean Corpuscular HGB Conc 35.4 % (30-36); Mean Corpuscular Hemoglobin 37.5 PG (26-34); Mean Corpuscular Volume 106.1 fL (80-100); Monocytes Absolute Auto 1300 /uL (0-900); Monocytes Percent Auto 17.1 % (3-14); Neutrophils Absolute Auto 6000 /uL (1500-7000); Neutrophils Percent Auto 76.1 % (50-75); Platelet Count 227 X10^3/uL (150-400); Red Blood Cell Count 3.81 X10^6/uL (4.5-5.9); Red Cell Distribution Width 12.5 % (11.6-14.8); White Blood Cell Count 7.8 X10^3/uL (4.5-11.0)
[2024-08-14 09:45] LABS: Influenza A - CEPHEID Flu A NEGATIVE (NEGATIVE); Influenza B - CEPHEID Flu B NEGATIVE (NEGATIVE); Respiratory Syncytial Virus Negative (Negative)
[2024-08-14 09:55] LABS: COVID-19 CEPHEID 4-PLEX PCR Negative (Negative)
[2024-08-14 10:02] LABS: Alanine Aminotransferase 45 IU/L (<50); Albumin 3.5 g/dL (3.5-5.0); Albumin Globulin Ratio 1.1 (1.0-2.8); Alkaline Phosphatase 63 U/L (38-126); Aspartate Aminotransferase 48 IU/L (17-59); BUN Creatinine Ratio 14.5 (6-22); Bilirubin Total 0.6 mg/dL (0.2-1.3); Blood Urea Nitrogen 20 mg/dL (9-20); Calcium 8.3 mg/dL (8.4-10.2); Carbon Dioxide 21 mmol/L (22-32); Chloride 99 mmol/L (98-107); Estimated Glomerular Filt Rate 52 mL/min (>60); Globulin 3.2 g/dL (1.7-4.1); Glucose 119 mg/dL (70-99); HEMOLYSIS 17 (0-50); Lipase 72 U/L (23-300); Potassium 3.4 mmol/L (3.4-5.1); Sodium 130 mmol/L (137-145); Total Protein 6.7 g/dL (6.3-8.2)
[2024-08-14] MEDS: POTASSIUM CHLORIDE 20 MEQ/15 ML UDC PO (10:46)
[2024-08-14] MEDS: LOPERAMIDE 2 MG CAPSULE 4 MG PO (10:46)
[2024-08-14 13:05] LABS: Bacteria Urine None Seen; Hyaline Casts Urine 1-5/LPF; Mucus Urine 2+ (Negative); RBC Urine None Seen (0-5/HPF); Squamous Epithelial Cell Urine 0-1 /HPF (0-5/HPF); Urine Volume 10mL (spun); WBC Urine 0-1/HPF (0-5/HPF)
[2024-08-14 13:06] LABS: Culture Indicated Urine Cult Not Indicated; Ictotest Urine Positive (Negative)
[2024-08-14 13:11] LABS: Adenovirus F 40/41 Not Detected (Not Detect); Astrovirus Not Detected (Not Detect); Campylobacter Detected (Not Detect); Clostridium difficile toxin AB Not Detected (Not Detect); Cryptosporidium Not Detected (Not Detect); Cyclospora cayetanensis Not Detected (Not Detect); Entamoeba histolytica Not Detected (Not Detect); Enteroaggregative E.coli Not Detected (Not Detect); Enteropathogenic E.coli Not Detected (Not Detect); Enterotoxigenic E.coli It/st Not Detected (Not Detect); Giardia lamblia Not Detected (Not Detect); Norovirus GI/GII Not Detected (Not Detect); Plesiomonsa shigelloides Not Detected (Not Detect); Rotavirus A Not Detected (Not Detect); Salmonella Not Detected (Not Detect); Sapovirus Not Detected (Not Detect); Shiga-like toxin-prod E.coli Not Detected (Not Detect); Shigella/Enteroinvasive E.coli Not Detected (Not Detect); Vibrio Not Detected (Not Detect); Vibrio cholerae Not Detected (Not Detect); Yersinia enterocolitica Not Detected (Not Detect)
[2024-08-14] MEDS: AZITHROMYCIN 250 MG TABLET 1000 MG PO (13:42)
--- NOTE | 2024-08-14 19:22 | PC.NURSE ---
This RN was present for all interaction with this patient and student RN. All student diet technician registered as been reviewed and agreed upon by this RN.
== END 2024-08-14 13:48 | disposition home or self-care (01) ==
PROVIDERS: Emergency Provider Emergency Medicine; PCP Family Medicine
DX: A04.5 Campylobacter enteritis (principal); R05.9 Cough, unspecified
CPT/HCPCS: 0241U; 36415; 80053; 81003; 81015; 83690; 85025; 87507; 96360; 99284